=== PATIENT | male | born 1940 | race Caucasian/White ===

== ENCOUNTER → 2017-01-04 | Day surgery (SDC) | payer MEDICARE, OTHER ==
[~2017-01-04] VITALS: Ht 182.9 cm; Wt 81.7 kg
[~2017-01-04] MED LIST: ALBUTEROL2.5 MG/0.5 INH; ASPIRIN325 MG PO; FLECAINIDE ACET50 MG PO; MOTRIN600 MG PO; NORCO 5-325 MG1 TAB PO; PRILOSEC20 MG PO; TYLENOL325 MG PO
== END | disposition disaster alternative care site (69) ==
LOC: GPOC 12-29 10:00 → GEND 08:21 → GPOC 08:30
PROC: 0D758ZZ Dilation of Esophagus, Via Natural or Artificial Opening Endoscopic (ICD-10-PCS; principal; 2017-01-04)
PROC: 3E0H8GC Introduction of Other Therapeutic Substance into Lower GI, Via Natural or Artificial Opening Endoscopic (ICD-10-PCS; 2017-01-04)
DX: Z12.11 Encounter for screening for malignant neoplasm of colon (principal); D12.6 Benign neoplasm of colon, unspecified; K22.2 Esophageal obstruction; K63.89 Other specified diseases of intestine; K44.9 Diaphragmatic hernia without obstruction or gangrene; I49.5 Sick sinus syndrome; I48.91 Unspecified atrial fibrillation; Z95.0 Presence of cardiac pacemaker; Z90.49 Acquired absence of other specified parts of digestive tract; Z98.890 Other specified postprocedural states
CPT/HCPCS: C1726; J7030

== ENCOUNTER 2017-04-26 21:19 | Emergency (ER) | payer MEDICARE, OTHER ==
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
== END 2017-04-26 22:22 | disposition disaster alternative care site (69) ==
LOC: GACC 21:19
PROC: 2W3FX1Z Immobilization of Left Hand using Splint (ICD-10-PCS; principal; 2017-04-26)
DX: S63.502A Unspecified sprain of left wrist, initial encounter (principal); S50.02XA Contusion of left elbow, initial encounter; I48.0 Paroxysmal atrial fibrillation; Z88.0 Allergy status to penicillin; Z79.899 Other long term (current) drug therapy; Z79.82 Long term (current) use of aspirin; W22.8XXA Striking against or struck by other objects, initial encounter